=== PATIENT | male | born 1995 | race African-American/Black ===

== ENCOUNTER 2017-02-26 11:17 | Emergency (ER) | payer MEDICAID ==
[~2017-02-26] VITALS: Ht 180.3 cm; Wt 93.0 kg
[2017-02-26 11:29] VITALS: BP 148/76
--- NOTE | 2017-02-26 11:40 | NUR ---
PT AMBULATED TO BED 2.
--- NOTE | 2017-02-26 11:41 | NUR ---
DR BAKER EVALUATING AAO PT AT BEDSIDE
--- NOTE | 2017-02-26 11:41 | NUR ---
ER MD DR. CARTER EVALUATING PT AT BEDSIDE.
--- NOTE | 2017-02-26 11:44 | NUR ---
PATIENT PRESENTS TO ED WITH C/O PENILE PAIN, PRURITUS, BURNING X 1 WK---DENIES DISCHARGE WHITE APPERANCE TO GLAND W POSSIBLE SMALL ULCERATIONS TO SHAFT DENIES DYSURIA HX---DENIES RX---NONE; DENIES N/V/D; SKIN IS PINK/WARM/DRY; AAOX4 WITH EVEN AND STEADY GAIT; LUNGS CLEAR BL; HR EVEN AND REGULAR; PT DENIES ANY FEVER, CP, SOB, OR COUGH AT THIS TIME; PATIENT STATES PAIN OF 8/10 AT THIS TIME; VSS; PATIENT POSITIONED FOR COMFORT; HOB ELEVATED; BEDRAILS UP X2; BED DOWN. ER MD MADE AWARE OF PT STATUS.
[2017-02-26 12:00] VITALS: BP 136/76
--- NOTE | 2017-02-26 12:00 | NUR ---
Patient discharged with v/s stable. Written and verbal after care instructions given and explained. Patient alert, oriented and verbalized understanding of instructions. Ambulatory with steady gait. All questions addressed prior to discharge. ID band removed. Patient advised to follow up with PMD. Rx of CLOTRIMAZOLE, DIFLUCAN given. Patient educated on indication of medication including possible reaction and side effects. Opportunity to ask questions provided and answered.
== END 2017-02-26 12:00 | disposition home or self-care (01) ==
LOC: MED 11:17
DX: B37.42 Candidal balanitis (principal)
CPT/HCPCS: 99283

== ENCOUNTER 2017-02-28 06:10 | Emergency (ER) | payer MEDICAID ==
[~2017-02-28] VITALS: Ht 180.3 cm; Wt 90.7 kg
[2017-02-28 06:12] VITALS: BP 145/65
--- NOTE | 2017-02-28 06:24 | NUR ---
PT TAKEN TO BED 4.
--- NOTE | 2017-02-28 06:30 | NUR ---
Patient being evaluated by Dr. Tamayo at bedside.
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
--- NOTE | 2017-02-28 07:10 | NUR ---
REPORT GIVEN TO NEAL SUAREZ. TRANSFER OF CARE AT THIS TIME.
[2017-02-28 07:31] VITALS: BP 145/65
--- NOTE | 2017-02-28 07:31 | NUR ---
Patient discharged with v/s stable. Written and verbal after care instructions given and explained. Patient alert, oriented and verbalized understanding of instructions. Ambulatory with steady gait. All questions addressed prior to discharge. ID band removed. Patient advised to follow up with PMD. Rx of ACYCLOVIR AND MOTRIN given. Patient educated on indication of medication including possible reaction and side effects. Opportunity to ask questions provided and answered.
[2017-03-03 09:15] LABS: CHLAMYDIA TRACHOMATIS AMP DNA Negative (Negative)
== END 2017-02-28 07:31 | disposition home or self-care (01) ==
LOC: MED 06:10
DX: A60.02 Herpesviral infection of other male genital organs (principal); Z88.8 Allergy status to other drugs, medicaments and biological substances
CPT/HCPCS: 36415; 86592; 86702; 87491; 87529; 99284

== ENCOUNTER 2019-03-20 23:01 | Emergency (ER) | payer SELFPAY ==
[~2019-03-20] VITALS: Ht 177.8 cm; Wt 99.8 kg
[2019-03-20 23:05] VITALS: BP 150/90
--- NOTE | 2019-03-20 23:05 | NUR ---
TO BED #12 AMBULATORY
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
[2019-03-20] MEDS ORDERED: DEXAMETHASONE 10 MG/ML VIAL IM ONE (23:40)
[2019-03-20 23:50] VITALS: BP 150/90
--- NOTE | 2019-03-20 23:50 | NUR ---
PT DISCHARGED WITH PAPERWORK. RX LOTRIMIN. EDUCATED PT REGARDING MEDICATION AND S/E. EDUCATED PT REGARDING D/C DIAGNOSIS AND INSTRUCTIONS. PT VERBALIZED UNDERSTANDING OF TEACHING. TOLD PT TO FOLLOW UP WITH PCP AND WHEN TO RETURN TO ED. PT AT STABLE CONDITION. ALL QUESTIONS ANSWERED.
== END 2019-03-20 23:50 | disposition home or self-care (01) ==
LOC: MED 23:01
DX: B35.6 Tinea cruris (principal); Z88.3 Allergy status to other anti-infective agents
CPT/HCPCS: 96372; 99283; J1100